=== PATIENT | female | born 2000 | race Caucasian/White ===

== ENCOUNTER 2018-05-01 20:22 | Outpatient (CLI) | payer MEDICAID | END 2018-05-01 22:23 | disposition home or self-care (01) | LOC: M LDO 20:22 | DX: O26.893 Other specified pregnancy related conditions, third trimester (principal); R10.2 Pelvic and perineal pain; Z3A.36 36 weeks gestation of pregnancy | CPT/HCPCS: 59025 ==

== ENCOUNTER → 2018-05-11 | Outpatient (REF) | payer MEDICAID | LOC: M LAB REF 17:05 | DX: Z34.83 Encounter for supervision of other normal pregnancy, third trimester (principal); Z36.89 Encounter for other specified antenatal screening | CPT/HCPCS: 87186 ==

== ENCOUNTER 2018-05-17 12:39 | Outpatient (CLI) | payer MEDICAID ==
[~2018-05-17] VITALS: Ht 160 cm; Wt 67.7 kg
[2018-05-17 13:06] VITALS: BP 109/69
[2018-05-17] MEDS ORDERED: FLINCHW5 PO (13:08)
[2018-05-30] MEDS ORDERED: COLA100C5 PO (05:19)
[2018-05-30] MEDS ORDERED: MAPA500T17 PO (07:28)
[2018-05-30] MEDS ORDERED: IBUP-1114 PO (07:29)
== END 2018-05-17 13:50 | disposition home or self-care (01) ==
LOC: M LDO 12:39
PROVIDERS: ATTEND Specialist
DX: O47.9 False labor, unspecified (principal); Z3A.38 38 weeks gestation of pregnancy

== ENCOUNTER → 2018-05-19 | Outpatient (CLI) | payer MEDICAID ==
[~2018-05-19] MED LIST: COLA100C5 PO; FLINCHW5 PO; IBUP-1114 PO; MAPA500T17 PO
[2018-05-19 17:57] LABS: BASO # 0.1 10^3/uL (0.0-0.2); BASO % 0.5 % (0.0-1.0); EOS # 0.1 10^3/uL (0.0-0.50); EOS % 0.9 % (0.0-3.0); HEMATOCRIT 31.8 % (36.0-47.0); HEMOGLOBIN 10.8 g/dl (12.0-15.5); LYMPH # 1.7 10^3/uL (1.5-6.5); LYMPH % 17.5 % (24.0-44.0); MEAN CORPUSCULAR HEMOGLOBIN 30.2 pg (27.0-33.0); MEAN CORPUSCULAR VOLUME 88.8 fl (80.0-96.0); MONO # 0.8 10^3/uL (0.0-0.8); MONO % 8.3 % (0.0-5.0); NEUTROPHILS # 6.9 10^3/uL (1.8-7.7); NEUTROPHILS % 72.2 % (36.0-66.0); PLATELET COUNT, AUTOMATED 170 10^3/uL (150-450); RED BLOOD COUNT 3.58 10^6/uL (4.00-5.40); WHITE BLOOD COUNT 9.5 10^3/uL (4.0-10.0)
[2018-05-19 19:53] LABS: CHLAMYDIA DNA AMPLIFICATION POSITIVE (NEGATIVE); GC DNA AMPLIFICATION NEGATIVE (NEGATIVE)
[2018-05-20 10:14] LABS: HEPATITIS C VIRUS ABY INDEX 0.1 INDEX (<0.8); HIV 1&2 SCREEN CENTAUR NEGATIVE (NEGATIVE); RUBELLA IgG QUALITATIVE IMMUNE (IMMUNE)
== END ==
LOC: M SMT 15:26
PROVIDERS: ATTEND Advanced Practice Midwife
DX: Z36.89 Encounter for other specified antenatal screening (principal)

== ENCOUNTER 2018-05-27 19:34 | Inpatient (IN) | payer MEDICAID ==
[2018-05-27] MEDS: PENICILLIN G POTASSIUM IV 5 MU in D5W MINI-BAG PLUS 100 ML IV (22:11)
[2018-05-27] MEDS: LR 1,000 ML IV (22:13)
[2018-05-27 22:14] LABS: HEMATOCRIT 35.7 % (36.0-47.0); HEMOGLOBIN 11.9 g/dl (12.0-15.5); MEAN CORPUSCULAR HEMOGLOBIN 29.9 pg (27.0-33.0); MEAN CORPUSCULAR HGB CONC 33.3 g/dl (32.0-36.5); MEAN CORPUSCULAR VOLUME 89.7 fl (80.0-96.0); PLATELET COUNT, AUTOMATED 183 10^3/uL (150-450); RED BLOOD COUNT 3.98 10^6/uL (4.00-5.40); RED CELL DISTRIBUTION WIDTH 14.2 % (11.5-14.5); WHITE BLOOD COUNT 9.5 10^3/uL (4.0-10.0)
[2018-05-27] MEDS: OXYTOCIN DRIP 30 UNITS in APPROPRIATE DILUENT 1 EA IV (22:33)
[2018-05-27 22:57] LABS: HBSAG L&D NEGATIVE (NEGATIVE)
[2018-05-28] MEDS ORDERED: FENTANYL 2MCG/ML ROPIVACAINE 0.2% IN 0.9% NACL 100ML IVBAG As Ordered (00:26)
[2018-05-28] MEDS: LR 1,000 ML IV ×2 (01:00→05:09)
[2018-05-28] MEDS ORDERED: ONDANSETRON 4MG/2ML VIAL (J2405) IV ×2 (01:25→07:15)
[2018-05-28] MEDS ORDERED: EPIDURAL COMMENT XX (01:25)
[2018-05-28] MEDS ORDERED: diphenhydrAMINE INJ 50MG/ML VIAL (J1200) IV (01:25)
[2018-05-28] MEDS ORDERED: REFRIGERATOR IV KEYS XX (01:25)
[2018-05-28] MEDS: FENTANYL/ROPIVACAINE/NACL BAG 100 ML EPIDURAL (01:25)
[2018-05-28] MEDS ORDERED: EPIDURAL/PCA KEYS XX (01:25)
[2018-05-28] MEDS ORDERED: NALOXONE INJ 0.4 MG/1 ML VIAL (J2310) IV (01:25)
[2018-05-28] MEDS ORDERED: LACTATED RINGER'S 1000 ML IV (01:25)
[2018-05-28] MEDS ORDERED: ePHEDrine SULFATE 25 MG/5 ML(5MG/ML) SYRINGE IV (01:25)
[2018-05-28] MEDS: PENICILLIN G POTASSIUM IV 2.5 MU in APPROPRIATE DILUENT 1 EA IV (02:24)
[2018-05-28 06:42] LABS: CORD GAS ABE A -7.6; CORD GAS HCO3 A 21.4 MEQ/L; CORD GAS HCO3 V 21.7 MEQ/L; CORD GAS O2 SAT A 23.7 %; CORD GAS O2 SAT V 52.3 %; CORD GAS PCO2 A 56.3 mmHg; CORD GAS PCO2 V 42.2 mmHg; CORD GAS PH A 7.198 UNITS; CORD GAS PO2 A 14.4 mmHg; CORD GAS PO2 V 20.9 mmHg; CORD GAS SBC A 16.7 MEQ/L; CORD GAS SBC V 19.9 MEQ/L; CORD GAS TCO2 A 23.1 MEQ/L
[2018-05-28] MEDS: OXYTOCIN DRIP 30 UNITS in APPROPRIATE DILUENT 1 EA IV (07:15)
[2018-05-28] MEDS ORDERED: ACETAMINOPHEN 500 MG TAB PO (07:15)
[2018-05-28] MEDS ORDERED: DIBUCAINE 1% OINTMENT 30GM TOP (07:15)
[2018-05-28] MEDS ORDERED: METHYLERGONOVINE MALEATE 0.2 MG TAB PO (07:15)
[2018-05-28] MEDS ORDERED: DOCUSATE SODIUM 100 MG CAP PO (07:15)
[2018-05-28] MEDS: PRENATAL VITAMINS CHEWABLE TABLET PO (09:00)
[2018-05-29] MEDS: DOCUSATE SODIUM 100 MG CAP PO (05:55)
[2018-05-29] MEDS: RHOGAM 300 MCG (1500 IU) INJ (J2790) IM (07:00)
[2018-05-29] MEDS: MEASLES,MUMPS,RUBELLA VACCINE INJ (MMR-II) (90707) SC (07:00)
[2018-05-29] MEDS: PRENATAL VITAMINS CHEWABLE TABLET PO (08:14)
[2018-05-29] MEDS: IBUPROFEN 800 MG TAB PO (08:15)
[2018-05-30] MEDS: PRENATAL VITAMINS CHEWABLE TABLET PO (09:00)
== END 2018-05-30 12:00 | disposition home or self-care (01) | DRG 560 ==
LOC: M LDI 19:34 → M OBS 05-28 09:10
PROVIDERS: Specialist
PROC: 10E0XZZ Delivery of Products of Conception, External Approach (ICD-10-PCS; principal; 2018-05-28)
PROC: 0HQ9XZZ Repair Perineum Skin, External Approach (ICD-10-PCS; 2018-05-28)
DX: O70.0 First degree perineal laceration during delivery (principal); O99.820 Streptococcus B carrier state complicating pregnancy; Z37.0 Single live birth; Z3A.39 39 weeks gestation of pregnancy; O69.82X0 Labor and delivery complicated by other cord entanglement, without compression, not applicable or unspecified